=== PATIENT | male | born 1960 | race Caucasian/White ===

== ENCOUNTER 2016-11-24 14:58 | Emergency (ER) | payer BC, MEDICAID, OTHER ==
[~2016-11-24] VITALS: Ht 175.3 cm; Wt 88.0 kg
[~2016-11-24 14:58] MED LIST: LISI10TA5 PO; METO100T3 PO; OXYC-34 PO
--- NOTE | 2016-11-24 15:00 | NUR ---
PT TO ED DT CHEST PALPITATION X 2 DAYS. DENIES CHEST PAIN, PT APPEARS ANXIOUS. ST ON TELE MONITOR. VSS
[2016-11-24] MEDS ORDERED: IV LR 1000 ML 1,000 ML IV ONE (15:30)
--- NOTE | 2016-11-24 15:39 | NUR ---
PATIENT WAS TAKEN TO CT
[2016-11-24 15:41] LABS: BASOPHILS # (AUTO) 0.1 /CMM (0.0-0.2); BASOPHILS % (AUTO) 1.4 % (0.0-2.0); EOSINOPHILS % (AUTO) 0.4 % (0.0-6.0); HEMATOCRIT 49 % (39-51); HEMOGLOBIN 16.5 g/dL (13.5-17.5); LYMPHOCYTES % (AUTO) 26.5 % (20.0-44.0); MEAN CORPUSCULAR HEMOGLOBIN 32 PG (26.0-33.0); MEAN CORPUSCULAR HGB CONC 34 g/dl (31.0-36.0); MEAN CORPUSCULAR VOLUME 96 fL (80-96); MONOCYTES # (AUTO) 0.8 /CMM (0.1-1.30); NEUTROPHILS # (AUTO) 4.7 /CMM (1.8-8.9); NEUTROPHILS % (AUTO) 60.7 % (43.0-81.0); PLATELET COUNT (AUTO) 287 /CMM (150-450); RDW COEFFICIENT OF VARIATION 17.8 (11.5-15.0); RED BLOOD CELL COUNT(AUTO) 5.09 MIL/uL (4.5-6.0); WHITE BLOOD COUNT (AUTO) 7.7 K/uL (4.3-11.0)
[2016-11-24 16:00] LABS: TROPONIN I < 0.017 ng/mL (0.00-0.056)
[2016-11-24 16:01] LABS: INR 0.91 (0.87-1.13); PROTHROMBIN TIME 9.5 SECS (9.5-12.7)
[2016-11-24 16:03] LABS: ALCOHOL, BLOOD 136 mg/dL (0-0)
[2016-11-24 16:58] LABS: ALBUMIN 3.5 g/dL (3.4-5.0); BILIRUBIN,TOTAL 0.6 mg/dL (0.2-1.0); CALCIUM, SERUM 8.5 mg/dL (8.5-10.1); CREATININE 0.6 mg/dL (0.6-1.3); POTASSIUM 4.6 mmol/L (3.5-5.1); TOTAL PROTEIN, SERUM 7.9 g/dL (6.4-8.2)
[2016-11-24] MEDS ORDERED: LORAZEPAM INJ 2 MG/ML VIAL IV ONE (17:00)
[2016-11-24] MEDS ORDERED: LORAZEPAM INJ 2 MG/ML VIAL ONE (17:01)
[2016-11-24 17:57] VITALS: BP 130/80
--- NOTE | 2016-11-24 17:58 | NUR ---
Patient discharged to home in stable condition. Written and verbal after care instructions given. Patient verbalizes understanding of instruction.
== END 2016-11-24 17:57 | disposition home or self-care (01) ==
LOC: ER 15:00
DX: F10.239 Alcohol dependence with withdrawal, unspecified (principal); R79.1 Abnormal coagulation profile; I10 Essential (primary) hypertension; Z88.0 Allergy status to penicillin; Z90.49 Acquired absence of other specified parts of digestive tract
CPT/HCPCS: 36415; 70450; 80048; 80076; 80305; 84484; 85025; 85730; 93005; 96365; 96375; 99285; A4606; G0480; J2060; J7120 ×2; Z7610